=== PATIENT | female | born 1960 | race Caucasian/White ===

== ENCOUNTER → 2025-03-17 | Day surgery (SDC) | payer BC ==
[~2025-03-17] MED LIST: FENTANYL CITRATE/PF 100MCG/2 ML INJ ONE; LIDOCAINE HCL 2% LOCAL INJ 5 ML SDV VIAL INJ ONE; METOPROLOL TARTRATE INJ 1 MG/ML VIAL ONE; MIDAZOLAM HCL 2 MG/2 ML VIAL ONE; ONDANSETRON HCL INJ 2MG/ML 2ML 2 MG/ML VIAL ONE; PROPOFOL IV EMULSION 50 ML IV ONE; ULTRAM 50MG50 MG PO
[2025-03-17] MEDS: LACTATED RINGER'S 1,000 ML ONE (14:12)
[2025-03-17 14:19] LABS: BASOPHILS % 0.4 % (0.0-1.0); EOSINOPHILS % 0.2 % (0.0-6.0); LYMPHOCYTES % 11.2 % (18.0-39.1); MONOCYTES % 7.5 % (4.4-11.3); NEUTROPHILS % 80.3 % (38.7-80.0); RED CELL DISTRIBUTION WIDTH 13.1 % (11.7-14.4)
[2025-03-17 17:34] VITALS: TEMP 97.2
[2025-03-17 18:00] VITALS: BP 130/80; PULSE 82; RESP 14; O2SAT 100
== END | disposition home or self-care (01) ==
LOC: OR 13:27
PROVIDERS: ATTEND Internal Medicine Gastroenterology
DX: R10.11 Right upper quadrant pain (principal); C85.19 Unspecified B-cell lymphoma, extranodal and solid organ sites; K57.30 Diverticulosis of large intestine without perforation or abscess without bleeding; D12.0 Benign neoplasm of cecum; K62.1 Rectal polyp; K64.8 Other hemorrhoids; K62.9 Disease of anus and rectum, unspecified; R00.1 Bradycardia, unspecified
CPT/HCPCS: 36415; 45380; 45385; 85025; 93005; J2003; J2250; J2405; J2704; J3010; J7121; 45378